=== PATIENT | female | born 1975 | race Two or more races ===

== ENCOUNTER 2017-07-28 12:23 | Emergency (ER) | payer OTHER ==
[~2017-07-28] VITALS: Ht 154.9 cm; Wt 107.5 kg
[~2017-07-28 12:23] MED LIST: MACROBID100 MG ORAL
[2017-07-28] MEDS ORDERED: NKM (12:45)
[2017-07-28] MEDS ORDERED: Morphine Sulfate 4mg/ml Inj IVP ONE ×2 (13:00→18:15)
--- NOTE | 2017-07-28 13:02 | Emergency Room Report ---
History of Present Illness General Chief Complaint: Abdominal Pain Source: Patient (CINDY MASON) Present Illness HPI The patient is a 41-year-old female presenting for abdominal pain. She denies any medical history. She states the pain began yesterday described as a 10 out of 10 dull ache to the left lower abdomen and radiates to the left groin. No known provoking or relieving factors. She has not tried any medications for pain. She denies any other symptoms including nausea, vomiting, fever, chills, chest pain, shortness of breath, constipation, diarrhea, dysuria, vaginal discharge, back pain (CINDY MASONAKevin) Allergies: Coded Allergies: No Known Allergies (Unverified , 01/09/15) Patient History Past Medical History: see triage record Pertinent Family History: none Last Menstrual Period: Current Now: No Reviewed Nursing Documentation: PMH: Agreed, PSxH: Agreed (CINDY MASON) Nursing Documentation-PMH Past Medical History: No Stated History Hx Cardiac Problems: No Hx Hypertension: No Hx Pacemaker: No Hx Asthma: No Hx COPD: No Hx Diabetes: No Hx Cancer: No Hx Gastrointestinal Problems: No Hx Dialysis: No Hx Neurological Problems: No Hx Cerebrovascular Accident: No Hx Seizures: No (CINDY MASON P.AKevin) Review of Systems All Other Systems: negative except mentioned in HPI (CINDY MASON.Radha) Physical Exam Vital Signs Date Time Temp Pulse Resp B/P (MAP) Pulse Ox O2 Delivery O2 Flow Rate FiO2 07/28/17 12:40 98.1 71 20 100 Room Air Sp02 EP Interpretation: reviewed, normal General Appearance: no apparent distress, alert, GCS 15, non-toxic Head: normocephalic, atraumatic Eyes: bilateral eye normal inspection, bilateral eye PERRL ENT: hearing grossly normal, normal pharynx, no angioedema, normal voice Respiratory: chest non-tender, lungs clear, normal breath sounds, speaking full sentences Cardiovascular #1: regular rate, rhythm, no edema Gastrointestinal: normal bowel sounds, soft, no mass, no guarding, tenderness - LLQ Genitourinary: normal inspection, no CVA tenderness Musculoskeletal: back normal, gait/station normal, normal range of motion, non- tender Neurologic: alert, oriented x3, responsive, motor strength/tone normal, sensory intact, speech normal Psychiatric: judgement/insight normal, memory normal, mood/affect normal, no suicidal/homicidal ideation Skin: normal color, no rash, warm/dry, well hydrated (CINDY MASON) Medical Decision Making PA Attestation Dr. Bhat is my supervising physician. Patient management was discussed with my supervising physician (CINDY MASON) Medicare Attestation Please note that the care and workup of the patient was reviewed the myself as well CAT scan reports and blood work and workup all evaluated I do agree with the workup and the final disposition and acute interventions (STEPHANIE BHAT D.O.) Diagnostic Impression: Primary Impression: Abdominal pain Qualified Codes: R10.32 - Left lower quadrant pain Additional Impressions: UTI (urinary tract infection) Qualified Codes: N30.01 - Acute cystitis with hematuria Abscess ER Course The patient is a 41-year-old female presenting for abdominal pain. Differential diagnoses considered include but not limited to gastritis, pancreatitis, appendicitis, UTI, Hemorrhagic cyst, diverticulitis, among others PE: Vitals WNL. NAD. Abdomen: Normal appearance. Non distended. No ecchymosis. Normal BS. TTP over suprapubic and LLQ. No McBurney point tenderness. No guarding. No CVA tenderness CBC shows leukocytosis Urinalysis consistent with urinary tract infection Otherwise unremarkable CT scan shows intravaginal wall abscess The patient will be admitted for further evaluation and treatment. She is given IV antibiotics and pain medication. The patient is feeling much more comfortable at this time and pain has significantly decreased. Dr. Bhat has spoken with the admitting physician. Laboratory Tests Test 07/28/17 12:35 07/28/17 13:10 Urine Color Christian Urine Appearance Turbid Urine pH 9 (4.5-8.0) Urine Specific [place] 1.015 (1.005-1.035) Urine Protein 3+ (NEGATIVE) H Urine Glucose (UA) Negative (NEGATIVE) Urine Ketones 3+ (NEGATIVE) H Urine Occult Blood 5+ (NEGATIVE) H Urine Nitrite Positive (NEGATIVE) H Urine Bilirubin Negative (NEGATIVE) Urine Urobilinogen 1 MG/DL (0.0-1.0) H Urine Leukocyte Esterase 2+ (NEGATIVE) H Urine RBC Tntc /HPF (0 - 2) H Urine WBC 5-10 /HPF (0 - 2) H Urine Squamous Epithelial Cells Few /LPF (NONE/OCC) Urine Bacteria Few /HPF (NONE) Urine HCG, Qualitative Negative White Blood Count 13.3 K/UL (4.8-10.8) H Red Blood Count 4.89 M/UL (4.20-5.40) Hemoglobin 8.5 G/DL (12.0-16.0) L Hematocrit 30.1 % (37.0-47.0) L Mean Corpuscular Volume 62 FL (80-99) L Mean Corpuscular Hemoglobin 17.5 PG (27.0-31.0) L Mean Corpuscular Hemoglobin Concent 28.4 G/DL (32.0-36.0) L Red Cell Distribution Width 16.7 % (11.6-14.8) H Platelet Count 459 K/UL (150-450) H Mean Platelet Volume 7.5 FL (6.5-10.1) Neutrophils (%) (Auto) 82.1 % (45.0-75.0) H Lymphocytes (%) (Auto) 14.0 % (20.0-45.0) L Monocytes (%) (Auto) 2.8 % (1.0-10.0) Eosinophils (%) (Auto) 0.5 % (0.0-3.0) Basophils (%) (Auto) 0.7 % (0.0-2.0) Prothrombin Time 10.1 SEC (9.30-11.50) Prothrombin Time INR 1.0 (0.9-1.1) PTT 23 SEC (23-33) Sodium Level 133 MMOL/L (136-145) L Potassium Level 4.7 MMOL/L (3.5-5.1) Chloride Level 98 MMOL/L (98-107) Carbon Dioxide Level 24 MMOL/L (21-32) Anion Gap 11 (5-15) Blood Urea Nitrogen 17 mg/dL (7-18) Creatinine 0.9 MG/DL (0.55-1.30) Estimate Glomerular Filtration Rate > 60 mL/min (>60) Glucose Level 124 MG/DL (74-106) H Calcium Level 9.3 MG/DL (8.5-10.1) Total Bilirubin 0.7 MG/DL (0.2-1.0) Aspartate Amino Transferase (AST) 54 U/L (15-37) H Alanine Aminotransferase (ALT) 20 U/L (12-78) Alkaline Phosphatase 77 U/L (46-116) Total Protein 7.8 G/DL (6.4-8.2) Albumin 3.3 G/DL (3.4-5.0) L Globulin 4.5 g/dL Albumin/Globulin Ratio 0.7 (1.0-2.7) L Lipase 126 U/L (73-393) Lab Results Impression CBC shows leukocytosis Urinalysis consistent with urinary tract infection Otherwise unremarkable (CINDY MASON) CT/MRI/US Diagnostic Results CT/MRI/US Diagnostic Results : Imaging Test Ordered: CT abd pelvis Impression Unusual small perirectal/pericervical abscess, as described. Possibly in the wall of the vagina, in which case this could represent an abscess originating from a Jasson duct cyst Small probable uterine fibroids (CINDY MASON) Last Vital Signs Date Time Temp Pulse Resp B/P (MAP) Pulse Ox O2 Delivery O2 Flow Rate FiO2 07/28/17 12:40 98.1 71 20 100 Room Air Status: improved (CINDY MASON) Disposition: ER T-[facility] Condition: Stable CINDY MASON Jul 28, 2017 13:02 STEPHANIE BHAT D.O. Jul 28, 2017 15:18
[2017-07-28 13:27] LABS: BASOPHILS % (AUTO) 0.7 % (0.0-2.0); EOSINOPHILS % (AUTO) 0.5 % (0.0-3.0); MEAN CORPUSCULAR HEMOGLOBIN 17.5 PG (27.0-31.0); MEAN CORPUSCULAR HGB CONC 28.4 G/DL (32.0-36.0); MEAN CORPUSCULAR VOLUME 62 FL (80-99); MEAN PLATELET VOLUME 7.5 FL (6.5-10.1); MONOCYTES % (AUTO) 2.8 % (1.0-10.0); NEUTROPHILS % (AUTO) 82.1 % (45.0-75.0); PLATELET COUNT 459 K/UL (150-450); RED BLOOD COUNT 4.89 M/UL (4.20-5.40); RED CELL DISTRIBUTION WIDTH 16.7 % (11.6-14.8); WHITE BLOOD COUNT 13.3 K/UL (4.8-10.8)
[2017-07-28 13:31] LABS: APPEARANCE,URINE TURBID; KETONES,URINE 3+ (NEGATIVE); LEUKOCYTE ESTERASE ,URINE 2+ (NEGATIVE); NITRITE,URINE POSITIVE (NEGATIVE); PH,URINE 9 (4.5-8.0); PROTEIN,URINE 3+ (NEGATIVE); UROBILINOGEN,URINE 1 MG/DL (0.0-1.0)
[2017-07-28 13:38] LABS: PROTHROMBIN TIME 10.1 SEC (9.30-11.50)
[2017-07-28 13:45] VITALS: BP 135/80
[2017-07-28 13:46] LABS: BACTERIA,URINE FEW /HPF; RBC,URINE TNTC /HPF (0 - 2); SQUAMOUS EPITHELIAL CELL,UR FEW /LPF (NONE/OCC)
[2017-07-28 13:47] LABS: ALANINE AMINOTRANSFERASE 20 U/L (12-78); ALBUMIN/GLOBULIN RATIO 0.7 (1.0-2.7); ANION GAP 11 (5-15); ASPARTATE AMINO TRANSFERASE 54 U/L (15-37); CALCIUM 9.3 MG/DL (8.5-10.1); CARBON DIOXIDE 24 MMOL/L (21-32); CHLORIDE 98 MMOL/L (98-107); CREATININE 0.9 MG/DL (0.55-1.30); GLOMERULAR FILTRATION RATE > 60 mL/min (>60); LIPASE 126 U/L (73-393); POTASSIUM 4.7 MMOL/L (3.5-5.1); SODIUM 133 MMOL/L (136-145); TOTAL PROTEIN 7.8 G/DL (6.4-8.2)
[2017-07-28] MEDS ORDERED: Zosyn 3.375gm inj ONE (15:30)
[2017-07-28] MEDS ORDERED: Piperacillin/Tazobactam 3.375 GM in NS 110 ML IVPB ONE (15:30)
--- NOTE | 2017-07-28 16:30 | Diagnostic Imaging Report ---
Clinical Indication: 41-year-old female presenting with abdominal pain, cannot attend a late left lower abdomen radiating to the left right Technique: No oral contrast utilized, per emergency room physician request IV administration nonionic contrast. Venous phase spiral acquisition obtained through the abdomen and pelvis. Multiplanar reconstructions were generated. Total dose length product 1045 mGycm. CTDIvol(s) 19 mGy. Dose reduction achieved using automated exposure control Comparison: None Findings: An unusual collection of low attenuation material and gas bubbles is seen anterior to the distal rectum, to the right of midline. It is situated inferior the, posteriorly, slightly to the right of the cervix, appears to be immediately adjacent to the cervix. This measures approximately 4.4 x 3.1 x 2.6 cm in diameter. It is located inside the levator musculature. The appendix is not definitely visualized, but no findings to suggest acute appendicitis are evident. A few slightly prominent lymph nodes are seen in the right lower quadrant. Is no evidence of diverticulosis or diverticulitis. No small bowel distention. No free or loculated intraperitoneal fluid or air demonstrated. The distal esophagus, stomach are unremarkable. There is suggestion of a small duodenal diverticulum. The liver, gallbladder, bile ducts, pancreas, spleen, adrenals, kidneys, collecting systems, ureters are unremarkable. No mesenteric or retroperitoneal mass or adenopathy. Uterus is heterogeneous, demonstrates several small areas of low attenuation which likely represent small fibroids. No adnexal mass. The included lung bases are clear. The bones are unremarkable. This is minimal dependent edema of the subcutaneous fat posteriorly. Impression: Unusual small perirectal/pericervical abscess, as described. Possibly in the wall of the vagina, in which case this could represent an abscess originating from a Jasson duct cyst Small probable uterine fibroids The CT scanner at [facility] is accredited by the [employer] and the scans are performed using protocols designed to limit radiation exposure to as low as reasonably achievable to attain images of sufficient resolution adequate for diagnostic evaluation.
[2017-07-28 16:36] VITALS: BP 109/80
[2017-07-28 18:12] VITALS: BP 117/78
[2017-07-28 20:10] VITALS: BP 122/85
[2017-07-28 20:12] VITALS: BP 122/85
== END 2017-07-28 20:10 | disposition short-term general hospital (02) ==
LOC: EMR 13:27
DX: R10.32 Left lower quadrant pain (principal); N39.0 Urinary tract infection, site not specified; L02.91 Cutaneous abscess, unspecified
CPT/HCPCS: 36415; 74177; 80053; 81003; 81025; 83690; 85025; 85610; 85730; 96361; 96365; 96375; 96376; 99285; J2270; J2405; J2543; Q9967